=== PATIENT | female | born 1995 | race Caucasian/White ===

== ENCOUNTER 2017-01-15 21:23 | Emergency (ER) | payer OTHER ==
[2014-06-25 15:37] VITALS: BMI 23.3
[~2017-01-15 21:23] MED LIST: HYDROCODON-ACE1 EAC7 PO; IBUPROFEN600 MG PO; KEFLEX500 MG PO; PRENATAL COMPLE1 TAB PO
== END 2017-01-16 01:15 | disposition left against medical advice (07) ==
LOC: D.ER 21:23
DX: R11.2 Nausea with vomiting, unspecified (principal)

== ENCOUNTER 2017-04-29 17:21 | Emergency (ER) | payer BC ==
[2014-06-25 15:37] VITALS: BMI 23.3
[2017-04-29 18:22] LABS: BASOPHILS 0 % (0-2); EOSINOPHILS 0 % (0-7); HEMATOCRIT 47.4 % (36.0-48.0); HEMOGLOBIN 15.8 g/dL (12-16); IMMATURE GRANULOCYTES 0.2 % (0-5); MCHC 33.3 g/dL (31.0-37.0); MCV 87.1 fL (80.0-100.0); MONOCYTES 3.9 % (2-11); NEUTROPHILS 88.9 % (40-80); PLATELET COUNT 230 10x3/uL (130-400); RBC 5.44 10x6/uL (4.00-5.40); RDW 12.3 % (11.5-14.5); WBC 11.3 10x3/uL (4.8-10.8)
[2017-04-29 18:36] LABS: HCG SERUM NEGATIVE (NEGATIVE)
[2017-04-29 18:38] LABS: ALBUMIN 4.7 g/dL (3.4-5.0); ALKALINE PHOSPHATASE 79 U/L (46-116); ALT (SGPT) 27 U/L (10-68); BILIRUBIN - TOTAL 1.07 mg/dL (0.2-1.3); CALC OSMOLALITY 273 mosm/kg (275-300); CALCIUM 10.1 mg/dL (8.5-10.1); CARBON DIOXIDE 25.6 mmol/L (21.0-32.0); CHLORIDE - SERUM 102 mmol/L (98-107); CREATININE - SERUM 0.8 mg/dL (0.6-1.3); GLUCOSE 124 mg/dL (74-106); POTASSIUM - SERUM 4.9 mmol/L (3.5-5.1); PROTEIN - SERUM 8.1 g/dL (6.4-8.2); SODIUM 137 mmol/L (136-145); UREA NITROGEN 11 mg/dL (7-18); eGFR NON AFRICAN AMERICAN > 90 mL/min (90-120)
[2017-04-29 19:30] LABS: APPEARANCE HAZY (CLEAR); BILIRUBIN NEGATIVE (NEGATIVE); COLOR YELLOW (YELLOW); GLUCOSE NEGATIVE (NEGATIVE); KETONE MODERATE mg/dL (NEGATIVE); LEUKOCYTE ESTERASE NEGATIVE (NEGATIVE); NITRITE NEGATIVE (NEGATIVE); PROTEIN TRACE mg/dL (NEGATIVE); SPECIFIC GRAVITY 1.005 (1.005-1.020); UROBILINOGEN NORMAL (NORMAL)
[2017-04-29 19:31] LABS: BACTERIA FEW /hpf (NONE SEEN); MUCUS <1+ /lpf (NONE SEEN); WHITE CELLS - URINE RARE /hpf (0-5)
== END 2017-04-29 22:30 | disposition home or self-care (01) ==
LOC: D.ER 17:21
PROVIDERS: Emergency Medicine
DX: R11.10 Vomiting, unspecified (principal); R10.9 Unspecified abdominal pain; N23 Unspecified renal colic; E87.6 Hypokalemia; F17.200 Nicotine dependence, unspecified, uncomplicated

== ENCOUNTER 2017-08-23 05:10 | Day surgery (SDC) | payer MEDICAID ==
[2017-08-20 14:28] LABS: BASOPHILS 0.2 % (0-2); EOSINOPHILS 0.7 % (0-7); HEMATOCRIT 42.8 % (36.0-48.0); HEMOGLOBIN 14.1 g/dL (12-16); IMMATURE GRANULOCYTES 0.2 % (0-5); LYMPHOCYTES 30.3 % (15-50); MCHC 32.9 g/dL (31.0-37.0); MCV 88.1 fL (80.0-100.0); MONOCYTES 10.3 % (2-11); NEUTROPHILS 58.3 % (40-80); PLATELET COUNT 195 10x3/uL (130-400); RBC 4.86 10x6/uL (4.00-5.40); RDW 12.3 % (11.5-14.5); WBC 4.5 10x3/uL (4.8-10.8)
[~2017-08-23 05:10] MED LIST changes: +LO LOESTRIN TAB
[2017-08-23 06:23] VITALS: BP 96/62; BMI 18.9
[2017-08-23 06:42] LABS: HCG URINE NEGATIVE (NEGATIVE)
--- NOTE | 2017-08-24 07:45 | OP ---
PATIENT NAME: ASHLEE COX MEDICAL RECORD: [id number] :95 LOCATION:D.OPS ADMISSION DATE: SURGEON: CHELSEA HAWK MD DATE OF OPERATION: 08/23/2017 PREOPERATIVE DIAGNOSES: 1. Pelvic pain. 2. Unwanted fertility. POSTOPERATIVE DIAGNOSES: 1. Pelvic pain. 2. Unwanted fertility. 3. Suspect adenomyosis. PROCEDURE PERFORMED: 1. Diagnostic laparoscopy. 2. Bilateral tubal occlusion using Falope rings. SURGEON: SURGEON: Chelsea Hawk MD. ANESTHESIOLOGIST: Dr. Chavez. ANESTHESIA: General anesthetic with endotracheal intubation. FINDINGS: Uterus is enlarged and slightly boggy. Tubes are unremarkable and ovaries are unremarkable. No endometriosis is evident in the pelvis. Bulb was visualized. The abdominal anatomy was unremarkable. SPECIMENS REMOVED: None SPECIMEN DISPOSITION: None applicable. ESTIMATED BLOOD LOSS: Less than or equal to 50 cc. FLUIDS: 750 cc of lactated Ringer's. URINE OUTPUT: Quantity sufficient with cath prior to the procedure. COMPLICATIONS: None. DRAIN: None. INDICATIONS: The patient is a 22-year-old multiparous female with undesired fertility and severe pelvic pain. The patient reports dyspareunia and pelvic pressure with periods. The patient acknowledges risks and limitations of a tubal occlusion. Risk of ectopic gestation has been described. DESCRIPTION OF PROCEDURE: After informed consent was assured, the patient was taken to the operating room where anesthetic was obtained without difficulty. The patient is now prepped and draped in the usual sterile fashion. Incisions made of the umbilicus to accommodate a 5-mm bladeless trocar, which was inserted without difficulty and pneumoperitoneum developed. The patient has been placed in steep Trendelenburg position and accessory trocar placed 2 fingerbreadths above the symphysis in the midline. Through this, a blunt probe was used to sweep the bowel free the pelvis with no findings of active endometriosis and OPERATIVE REPORT [id number] ASHLEE COX uterus enlarged and boggy. The tubes were followed to the fimbriated end. A Falope ring applicator was now loaded and placed into the abdomen. The first band is applied to the left tube with good blanching and crease formation. Then, after adjusting the Falope ring applicator, a second tube was applied on the right tube again, developing a good crease with blanching. A 5 cc of Marcaine was placed directly over both tubes and the accessory ports were removed after release of the pneumoperitoneum. The primary port is now removed and both sites were closed with a subcuticular stitch and Dermabond applied. Sponge, lap and needle counts correct times 2. TRANSINT:[id number] Voice Confirmation ID: [id number] DOCUMENT ID: [id number] CHELSEA HAWK MD at 0745 CC: [id number] DICTATION DATE: 08/23/17829 [facility] [place] [facility]: 08/23/17 1042 [facility] 08/23/17 [place] [id number] [place] [address]
== END 2017-08-23 15:00 | disposition home or self-care (01) ==
LOC: D.OPS 05:10 → D.PAN 07:30 → D.OPS 15:00
PROVIDERS: Obstetrics & Gynecology
DX: Z30.2 Encounter for sterilization (principal); N85.2 Hypertrophy of uterus; R10.2 Pelvic and perineal pain; Z01.812 Encounter for preprocedural laboratory examination

== ENCOUNTER 2018-05-24 12:24 | Emergency (ER) | payer MEDICAID ==
[~2018-05-24] VITALS: Ht 160 cm; Wt 45.5 kg
[2018-05-24 12:38] VITALS: Ht 160 cm; Wt 45.5 kg
[2018-05-24 13:09] LABS: BASOPHILS 0.1 % (0-2); EOSINOPHILS 0.4 % (0-7); HEMATOCRIT 43.6 % (36.0-48.0); HEMOGLOBIN 14.1 g/dL (12-16); IMMATURE GRANULOCYTES 0.2 % (0-5); LYMPHOCYTES 11.1 % (15-50); MCH 27.5 pg (26.0-34.0); MCHC 32.3 g/dL (31.0-37.0); MCV 85.2 fL (80.0-100.0); MEAN PLATELET VOLUME 9.5 fL (7.4-10.4); MONOCYTES 6.2 % (2-11); PLATELET COUNT 227 10x3/uL (130-400); RBC 5.12 10x6/uL (4.00-5.40); RDW 13.5 % (11.5-14.5); WBC 10.8 10x3/uL (4.8-10.8)
[2018-05-24 13:15] LABS: HCG URINE NEGATIVE (NEGATIVE)
[2018-05-24 13:19] LABS: APPEARANCE SLT CLOUDY (CLEAR); BILIRUBIN NEGATIVE (NEGATIVE); COLOR DARK YELLOW/PINK (YELLOW); GLUCOSE NEGATIVE (NEGATIVE); KETONE NEGATIVE (NEGATIVE); NITRITE NEGATIVE (NEGATIVE); PROTEIN NEGATIVE (NEGATIVE); UROBILINOGEN NORMAL (NORMAL)
[2018-05-24 13:20] LABS: EPITHELIAL CELLS 0-5 /hpf (0-5); MUCUS <1+ /lpf (NONE SEEN); RED CELLS - URINE >50 /hpf (0-5)
[2018-05-24 13:26] LABS: ALBUMIN 4.3 g/dL (3.4-5.0); ALKALINE PHOSPHATASE 65 U/L (46-116); ALT (SGPT) 30 U/L (10-68); BILIRUBIN - TOTAL 0.63 mg/dL (0.2-1.3); CALC OSMOLALITY 271 mosm/kg (275-300); CARBON DIOXIDE 30.5 mmol/L (21.0-32.0); CHLORIDE - SERUM 103 mmol/L (98-107); CREATININE - SERUM 0.8 mg/dL (0.6-1.3); GLUCOSE 95 mg/dL (74-106); POTASSIUM - SERUM 4.5 mmol/L (3.5-5.1); PROTEIN - SERUM 7.6 g/dL (6.4-8.2); SODIUM 137 mmol/L (136-145); UREA NITROGEN 7 mg/dL (7-18); eGFR NON AFRICAN AMERICAN > 90 mL/min (90-120)
[2018-05-24] MEDS ORDERED: NORCO 7.5/325 T1 TA1 PO (16:41)
[2018-05-24] MEDS ORDERED: FLOMAX0.4 MG PO (16:41)
[2018-05-24 17:40] VITALS: BP 95/62
== END 2018-05-24 17:40 | disposition home or self-care (01) ==
LOC: D.ER 12:24
PROVIDERS: Emergency Medicine
DX: R10.9 Unspecified abdominal pain (principal); R31.9 Hematuria, unspecified; N23 Unspecified renal colic; F17.200 Nicotine dependence, unspecified, uncomplicated